=== PATIENT | female | born 1995 | race Caucasian/White ===

== ENCOUNTER → 2020-03-14 10:17 | Outpatient (BNVA) | payer OTHER, SELFPAY | PROVIDERS: Visit Provider Nurse Practitioner Family | DX: B34.9 Viral infection, unspecified (principal); Z11.59 Encounter for screening for other viral diseases | CPT/HCPCS: 87635 ==

== ENCOUNTER 2022-05-09 12:37 | Emergency (ER) | payer SELFPAY ==
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
[2022-05-09] MEDS: tetanus-dipt-pertussis 0.5 mL SDV IM (14:12)
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
== END 2022-05-09 14:29 | disposition home or self-care (01) ==
PROVIDERS: Emergency Provider Emergency Medicine
DX: S13.4XXA Sprain of ligaments of cervical spine, initial encounter (principal); V89.2XXA Person injured in unspecified motor-vehicle accident, traffic, initial encounter; Z23 Encounter for immunization; S01.81XA Laceration without foreign body of other part of head, initial encounter
CPT/HCPCS: 72040; 90471; 90715; 99283

== ENCOUNTER → 2023-06-22 13:12 | Outpatient (BNVA) | payer SELFPAY | PROVIDERS: PCP Family Medicine; Visit Provider Family Medicine | DX: F41.9 Anxiety disorder, unspecified (principal); F32.A Depression, unspecified; R29.898 Other symptoms and signs involving the musculoskeletal system; K58.9 Irritable bowel syndrome, unspecified | CPT/HCPCS: 80053; 82306; 82607; 83735; 84439; 84443; 84481; 85025 ==

== ENCOUNTER → 2023-12-07 16:10 | Outpatient (BNVA) | payer SELFPAY | PROVIDERS: PCP Family Medicine; Visit Provider Family Medicine | DX: E55.9 Vitamin D deficiency, unspecified (principal) | CPT/HCPCS: 82306 ==

== ENCOUNTER → 2024-01-28 09:41 | Outpatient (BNVA) | payer SELFPAY | PROVIDERS: PCP Family Medicine | DX: Z20.822 Contact with and (suspected) exposure to COVID-19 (principal) | CPT/HCPCS: 87426 ==

== ENCOUNTER → 2024-02-04 14:15 | Outpatient (BNVA) | payer SELFPAY | PROVIDERS: PCP Family Medicine; Visit Provider Nurse Practitioner Women's Health | DX: Z87.42 Personal history of other diseases of the female genital tract (principal) | CPT/HCPCS: 87491; 87591; 87624 ==